=== PATIENT | male | born 1955 | race Caucasian/White ===

== ENCOUNTER 2022-06-29 05:56 | Emergency (ER) | payer OTHER ==
[~2022-06-29] VITALS: Ht 177.8 cm; Wt 104.3 kg
[2022-06-29] MEDS ORDERED: MECLIZINE HCL 12.5 MG TAB PO ONE ×2 (06:30→08:30)
[2022-06-29] MEDS ORDERED: MECLIZINE HCL 12.5 MG TAB ONE (06:45)
[2022-06-29] MEDS ORDERED: DIAZEPAM INJ 5 MG/ML 2 ML IV STA (07:34)
[2022-06-29] MEDS ORDERED: DIAZEPAM INJ 5 MG/ML 2 ML IV ONE (09:00)
[2022-06-29] MEDS ORDERED: MECLIZINE HCL12.5 MG PO (09:34)
[2022-06-29 09:52] VITALS: BP 121/65
== END 2022-06-29 10:00 | disposition home or self-care (01) ==
LOC: ER 06:04
DX: H81.10 Benign paroxysmal vertigo, unspecified ear (principal); R11.2 Nausea with vomiting, unspecified; I10 Essential (primary) hypertension; I50.9 Heart failure, unspecified; E78.5 Hyperlipidemia, unspecified; M54.9 Dorsalgia, unspecified; G89.29 Other chronic pain
CPT/HCPCS: 70450; 99284; J3360